=== PATIENT | female | born 1975 | race Caucasian/White ===

== ENCOUNTER 2017-04-03 18:58 | Emergency (ER) | payer OTHER ==
[~2017-04-03] VITALS: Ht 167.6 cm; Wt 81.8 kg
[~2017-04-03 18:58] MED LIST: 0.9126SP NS; AMOX1TAB61 PO; ASPI-482 PO; AZIT250T6 PO; BUTA1CAP29 PO; ENOX40DI SQ; FLUT16SP2 NS; HYDR1TAB12 PO; ONDA4TAB10 SL
[2017-04-03] MEDS ORDERED: IV NORMAL SALINE 1,000ML 1,000 ML IV SCH (19:16)
[2017-04-03] MEDS ORDERED: IV NORMAL SALINE 1,000ML 1,000 ML ONE (19:19)
[2017-04-03 19:28] LABS: BASO # 0.1 x10^3/uL (0.0-0.2); BASO % 1 % (0-3); EOS # 0.3 x10^3/uL (0.0-0.7); EOS % 5 % (0-3); HEMATOCRIT 32.3 % (36.0-47.0); HEMOGLOBIN 10.8 g/dL (12.0-15.5); LYMPH # 3.2 x10^3/uL (1.0-4.8); LYMPH % 49 % (24-48); MEAN CORPUSCULAR HEMOGLOBIN 27 pg (25-35); MEAN CORPUSCULAR HGB CONC 33 g/dL (31-37); MEAN CORPUSCULAR VOLUME 80 fL (79-100); MONO # 0.6 x10^3/uL (0.0-1.1); MONO % 9 % (0-9); NEUT # 2.4 x10^3uL (1.8-7.7); NEUT % 36 % (31-73); PLATELET COUNT 295 x10^3/uL (140-400); RED BLOOD COUNT 4.04 x10^6/uL (3.50-5.40); RED CELL DISTRIBUTION WIDTH 20.6 % (11.5-14.5); WHITE BLOOD COUNT 6.5 x10^3/uL (4.0-11.0)
[2017-04-03] MEDS ORDERED: ONDANSETRON PF 4 MG/2 ML VIAL. IV ONE (19:30)
[2017-04-03] MEDS ORDERED: KETOROLAC 30 MG/ML VIAL. IV ONE (19:30)
[2017-04-03 19:36] LABS: ALBUMIN 3.3 g/dL (3.4-5.0); ALK PHOS 78 U/L (46-116); ALT (SGPT) 19 U/L (14-59); ANION GAP 7 (6-14); AST (SGOT) 5 U/L (15-37); BLOOD UREA NITROGEN 10 mg/dL (7-20); CALCIUM 8.4 mg/dL (8.5-10.1); CARBON DIOXIDE 26 mmol/L (21-32); CHLORIDE 104 mmol/L (98-107); CREATININE 0.8 mg/dL (0.6-1.0); DIRECT BILIRUBIN < 0.1 mg/dL (0.0-0.2); LIPASE 96 U/L (73-393); POTASSIUM 3.8 mmol/L (3.5-5.1); SODIUM 137 mmol/L (136-145); TOTAL BILIRUBIN 0.2 mg/dL (0.2-1.0)
[2017-04-03 19:37] LABS: GLUCOSE 139 mg/dL (70-99)
[2017-04-03] MEDS ORDERED: DICYCLOMINE 20 MG/2 ML AMPUL. IM ONE (20:00)
[2017-04-03] MEDS ORDERED: IOHEXOL 300 MG/ML 75 ML VIAL. IV ONE (20:15)
--- NOTE | 2017-04-03 20:20 | PHYS DOC ---
General Chief Complaint: ABDOMINAL PAIN Stated Complaint: UNRESPONSIVE ON ARRIVAL Time Seen by MD: 19:07 Source: patient, family Exam Limitations: clinical condition Problems: History of Present Illness Initial Comments Patient is a 42-year-old female brought to the ED by her spouse for severe abdominal pain. Patient states that she had a partial hysterectomy and bladder sling approximately 3 months ago. She says since that time she's had lower abdominal discomfort and numbness in her groin. She states she has followed up with her surgeon and says that her surgeon told her her symptoms "were all in her head." Her spouse states that prior to ED arrival tonight he found the patient prone bent over the ottoman complaining of abdominal pain. Spouse reportedly asked the patient if she needed to come to the emergency department and she agreed. Spouse states that en route to the emergency department the patient "passed out " while seated in the passenger seat of his car. On arrival to the emergency department he says he could not wake her up. ED staff responded to the vehicle in the parking lot and found the patient sitting in the passenger seat awake alert and oriented 3. Patient states her pain is in her low abdomen she has nausea but no vomiting she denies fevers chills sweats or myalgias no nausea vomiting diarrhea or other bowel symptoms. No pre-arrival treatment. Patient's spouse relays that the patient has had recent psychiatric issues with severe depression and inpatient psychiatric treatments. Patient says the past 2 days her depression symptoms have worsened she saw a counselor 2 days ago and the patient was called in to a meeting with the patient and her counselor today to discuss her ongoing depression symptoms. Spouse was concerned that the patient may have overmedicated, he reports that he has found medications at home indicating that the patient has been doctor shopping to get specific medications she likes. ED vitals: 98.9, 20, 94/55, 96% room air Timing/Duration: 4-6 hours Severity: severe Modifying Factors: improves with other Associated Symptoms: other Allergies: Coded Allergies: Sulfa (Sulfonamide Antibiotics) (Unverified Allergy, Unknown, rash, ) sertraline (Verified Allergy, Unknown, 01/19/16) Past Medical History Medical History: other (anxiety, fibromyalgia, depression, suicidal ideation, migraine headaches, panic attacks, hypertension) Surgical History: other (herniorrhaphy, partial hysterectomy, bladder sling) Social History Smoker: non-smoker Alcohol: none Drugs: none Review of Systems Constitutional: denies chills, denies diaphoresis, denies fever, malaise Respiratory: denies cough, denies shortness of breath, denies wheezing Cardiovascular: denies chest pain, denies palpitations, denies syncope Gastrointestinal: abdominal pain, denies constipation, denies diarrhea, nausea , denies vomiting Genitourinary: denies discharge, denies dysuria, frequency, denies hematuria Musculoskeletal: denies back pain, denies joint swelling, denies neck pain Psychiatric/Neurological: denies headache, denies numbness, denies paresthesia Physical Exam General Appearance: moderate distress, obese Eyes: bilateral eye normal inspection, bilateral eye PERRL, bilateral eye EOMI Ear, Nose, Throat: hearing grossly normal, normal ENT inspection, normal pharynx Neck: non-tender, supple Respiratory: normal breath sounds, no respiratory distress Cardiovascular: normal peripheral pulses, regular rate, rhythm Gastrointestinal: soft (OB/nondistended, bowel sounds normal, suprapubic tenderness without rebound guarding or mass negative Magaña negative McBurney) Back: no CVA tenderness, no vertebral tenderness Extremities: normal range of motion, non-tender, normal inspection, no pedal edema, no calf tenderness Neurologic/Psychiatric: talent acquisition consultant II-XII nml as tested, no motor/sensory deficits, alert, oriented x 3, depressed affect, other (denies suicidal or homicidal ideation) Skin: normal color, warm/dry Orders, Labs, Meds EKG: NSR 96 bpm, no STEMI. Interpreted by Dr Weiss PATIENT: ASHLEE SORENSEN ACCOUNT: [id number] : 1975 LOCATION: ER AGE: 42 SEX: F EXAM STATUS: REG ER ORD. PHYSICIAN: MARLEN WEISS DO REASON: post op (hysterectomy) pain PROCEDURE: CT ABD PELV W/ IV CONTRST ONLY CT abdomen and pelvis with contrast. HISTORY: Pelvic pain, hysterectomy [address] scan of the abdomen and pelvis was done using 75 mL Omnipaque 300 contrast. Lung bases are clear. There is no effusion. A liver lesion is not identified. There is no calcified gallstone. Adrenal glands are normal. There is mild heterogeneous enhancement of the spleen which could just be related to the phase of the contrast enhancement, a definite lesion is not identified. Pancreas is normal. There is no mass or hydronephrosis in the kidneys. There is no free air or ascites or bowel obstruction. There is moderate stool in the colon. There is no abdominal wall hernia noted. Ovaries are generous in size without a dominant mass or cyst. Patient's had a hysterectomy. There is no small bowel obstruction. IMPRESSION: 1. No abdominal or pelvic mass noted 2. Ovaries are generous with small follicles. 3. No bowel obstruction or other acute finding noted. PQRS Compliance Statement: One or more of the following individualized dose reduction techniques were utilized for this examination: 1. Automated exposure control 2. Adjustment of the mA and/or kV according to patient size 3. Use of iterative reconstruction technique Electronically signed by: Alfredo Swanson MD (04/03/2017 9:03 PM) [facility] DICTATED AND SIGNED BY: ALFREDO SWANSON MD DATE: 04/03/172056 CC: ADRI ZHAO; MARLEN WEISS DO ~ 5: Time in department 2h 17 min. Lab just notified that pt needs to be redrawn for lactic acid. Pt will have prolonged ED course due to lab delay. Pertinent labs: White blood cells 6.5, hemoglobin 10.8 normocytic, urinalysis grossly positive for products of infection urine culture is pending I discussed findings as well as a treatment plan moving forward. Patient spouse were encouraged to continue follow-up for her psychiatric care. They expressed agreement and understanding of the treatment plan see departure. Departure Time of Disposition: 22:51 Disposition: 01 HOME, SELF-CARE Diagnosis: urinary tract infection Condition: GOOD Patient Instructions: Urinary Tract Infection, [id number] Additional Instructions: Rest, no strenuous activity. Aggressive hydration with gatorade, water. Continue current meds. OTC tylenol as needed. Rx: cipro, pyridium Follow up with your doctor in 3 days for recheck and urine culture results. Return to ED with new or changing symptoms. MARLEN WEISS DO Apr 03, 2017 20:20
[2017-04-03 20:30] LABS: AMPHETAMINE/METHAMPHETAMINE NEG (NEG); BARBITURATES NEG (NEG); BENZODIAZEPINES POS (NEG); CANNABINOIDS NEG (NEG); COCAINE NEG (NEG); METHADONE NEG (NEG); OPIATES NEG (NEG); PHENCYCLIDINE NEG (NEG)
[2017-04-03] MEDS ORDERED: CONTRAST GIVEN MC PRN (20:30)
--- NOTE | 2017-04-03 20:32 | EKG ---
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
[2017-04-03 20:36] LABS: BILIRUBIN,URINE NEG (NEG); CLARITY,URINE HAZY; COLOR,URINE YELLOW; GLUCOSE,URINE NEG (NEG); NITRITE,URINE POS (NEG); UROBILINOGEN,URINE 0.2 mg/dL (0.2 mg/dL)
[2017-04-03 20:37] LABS: BACTERIA,URINE MANY /HPF (0-FEW); SQUAMOUS EPITHELIAL CELL,UR FEW /LPF; WBC,URINE >40 /HPF (0-4)
[2017-04-03] MEDS ORDERED: cefTRIAXone SODIUM 1 GM VIAL IV ONE (21:00)
[2017-04-03] MEDS ORDERED: IV NORMAL SALINE 50ML 50 ML ONE (21:00)
--- NOTE | 2017-04-03 21:06 | RAD ---
CT abdomen and pelvis with contrast. HISTORY: Pelvic pain, hysterectomy [address] scan of the abdomen and pelvis was done using 75 mL Omnipaque 300 contrast. Lung bases are clear. There is no effusion. A liver lesion is not identified. There is no calcified gallstone. Adrenal glands are normal. There is mild heterogeneous enhancement of the spleen which could just be related to the phase of the contrast enhancement, a definite lesion is not identified. Pancreas is normal. There is no mass or hydronephrosis in the kidneys. There is no free air or ascites or bowel obstruction. There is moderate stool in the colon. There is no abdominal wall hernia noted. Ovaries are generous in size without a dominant mass or cyst. Patient's had a hysterectomy. There is no small bowel obstruction. IMPRESSION: 1. No abdominal or pelvic mass noted 2. Ovaries are generous with small follicles. 3. No bowel obstruction or other acute finding noted. PQRS Compliance Statement: One or more of the following individualized dose reduction techniques were utilized for this examination: 1. Automated exposure control 2. Adjustment of the mA and/or kV according to patient size 3. Use of iterative reconstruction technique Electronically signed by: Alfredo Swanson MD (04/03/2017 9:03 PM) [facility]
[2017-04-03 21:56] LABS: ANISOCYTOSIS SLIGHT; OVALOCYTES FEW; PLT ESTIMATE ADEQUATE (ADEQUATE)
[2017-04-03 23:00] VITALS: BP 123/82
[2017-04-03] MEDS ORDERED: PHENAZOPYRIDINE 200 MG TABLET. PO ONE (23:00)
--- NOTE | 2017-04-04 08:08 | RAD ---
Three-view acute abdominal series. History: Abdominal pain, pelvic pain PA and lateral views were taken of the chest. Lungs are free of infiltrates. Heart is normal in size. There is no effusion. There is no free air on the upright view of the abdomen or abnormal air-fluid levels. There is moderate stool mainly in the right colon and transverse colon. There is no bowel obstruction. There are no abnormal calcifications. Impression: 1. No acute chest disease. 2. No bowel obstruction or acute finding in the abdomen.
== END 2017-04-03 23:00 | disposition home or self-care (01) ==
LOC: ER 18:58
DX: N39.0 Urinary tract infection, site not specified (principal); I10 Essential (primary) hypertension; M79.7 Fibromyalgia; F41.9 Anxiety disorder, unspecified; G43.909 Migraine, unspecified, not intractable, without status migrainosus; Z88.2 Allergy status to sulfonamides; Z88.8 Allergy status to other drugs, medicaments and biological substances
CPT/HCPCS: 36415; 74022; 74177; 80048; 80076; 80305; 81001; 82550; 83605; 83690; 84484; 85008; 85027; 87086; 87186; 93005; 96361; 96365; 96372; 96375; 99285; G0480; J0500; J0696; J1885; J2405; G0481; J7030

== ENCOUNTER 2017-04-04 17:41 | Emergency (ER) | payer OTHER ==
[~2017-04-04] VITALS: Ht 167.6 cm; Wt 81.8 kg
[2017-04-04 18:20] VITALS: BP 123/82
[2017-04-04 20:15] LABS: BILIRUBIN,URINE NEG (NEG); CLARITY,URINE CLOUDY; COLOR,URINE RED; GLUCOSE,URINE 100 mg/dL (NEG)
[2017-04-04 20:17] LABS: NITRITE,URINE POS (NEG); UROBILINOGEN,URINE 1 mg/dL (0.2 mg/dL)
[2017-04-04 20:18] LABS: BACTERIA,URINE FEW /HPF (0-FEW); SQUAMOUS EPITHELIAL CELL,UR MANY /LPF; WBC,URINE >40 /HPF (0-4)
[2017-04-04 21:03] LABS: ALBUMIN 2.9 g/dL (3.4-5.0); ALBUMIN/GLOBULIN RATIO 0.8 (1.0-1.7); CALCIUM 8.5 mg/dL (8.5-10.1); CREATININE 0.8 mg/dL (0.6-1.0); POTASSIUM 4.1 mmol/L (3.5-5.1); TOTAL BILIRUBIN 0.1 mg/dL (0.2-1.0); TOTAL PROTEIN 6.5 g/dL (6.4-8.2)
--- NOTE | 2017-04-04 21:33 | PHYS DOC ---
General Chief Complaint: PAIN ON URINATION Stated Complaint: PAIN ON URINATION Time Seen by MD: 18:18 Source: patient, old records Exam Limitations: no limitations Problems: History of Present Illness Initial Comments Patient is a 42-year-old female who returns to the department today complaining of worsening of symptoms. Patient was seen by me at this facility last night for lower abdominal pain. She was evaluated extensively and found to have a urinary tract infection she was discharged home with antibiotics and Pyridium. She says since starting those medications she has had gas pains and bloating. She complains of foul- smelling gas with abdominal bloating and is requesting pain medications. She denies fever chills sweats or myalgias no nausea vomiting or diarrhea. See ED records from last night's visit for further information. Timing/Duration: 24 hours Severity: mild Modifying Factors: improves with other Associated Symptoms: other Allergies: Coded Allergies: Sulfa (Sulfonamide Antibiotics) (Unverified Allergy, Unknown, rash, ) sertraline (Verified Allergy, Unknown, 01/19/16) Past Medical History Medical History: other (depression, anxiety, fibromyalgia, migraine headaches) Surgical History: other (hysterectomy, bladder sling) Social History Smoker: non-smoker Alcohol: none Drugs: none Review of Systems Constitutional: denies chills, denies fever Respiratory: denies cough, denies shortness of breath Cardiovascular: denies chest pain, denies palpitations Gastrointestinal: see HPI Genitourinary: see HPI Musculoskeletal: denies back pain, denies joint swelling, denies neck pain Psychiatric/Neurological: see HPI Physical Exam General Appearance: no apparent distress, obese Ear, Nose, Throat: hearing grossly normal, normal ENT inspection Neck: non-tender, supple Respiratory: normal breath sounds, no respiratory distress Gastrointestinal: soft (mildly distended and tympanic, no tenderness to palpation no masses bowel sounds are normal) Back: no CVA tenderness, no vertebral tenderness Extremities: non-tender, normal inspection Neurologic/Psychiatric: lead security officer II-XII nml as tested, no motor/sensory deficits, alert, oriented x 3, depressed affect Skin: normal color, warm/dry Orders, Labs, Meds Urinalysis remains positive for products of infection I discussed the patient's symptoms as well as her presentation yesterday with the extensive workup. Patient was advised no narcotic pain medications would be given for this condition as it would worsen her abdominal symptoms. She is agreeable to simethicone and discharge home. Departure Time of Disposition: 21:28 Disposition: 01 HOME, SELF-CARE Diagnosis: adverse medication reaction (increased bowel gas) Condition: GOOD Patient Instructions: Flatulence, [id number] Additional Instructions: Continue current medications. Aggressive hydration with gatorade, water. Rx: simethicone No narcotic pain medications indicated and would actually worsen your symptoms. Increase exercise and activity. Follow up with your doctor in 3-5 days. Return to ED with new or changing symptoms. MARLEN WEISS DO Apr 04, 2017 21:33
[2017-04-04] MEDS ORDERED: SIMETHICONE 80 MG TAB.CHEW PO ONE (21:45)
== END 2017-04-04 21:45 | disposition home or self-care (01) ==
LOC: ER 17:41
DX: T36.95XA Adverse effect of unspecified systemic antibiotic, initial encounter (principal); T39.8X5A Adverse effect of other nonopioid analgesics and antipyretics, not elsewhere classified, initial encounter; M79.7 Fibromyalgia; F41.9 Anxiety disorder, unspecified; G43.909 Migraine, unspecified, not intractable, without status migrainosus; Z87.440 Personal history of urinary (tract) infections; Z88.2 Allergy status to sulfonamides; Z88.8 Allergy status to other drugs, medicaments and biological substances; Y92.89 Other specified places as the place of occurrence of the external cause
CPT/HCPCS: 36415; 80053; 81001; 87086; 99284

== ENCOUNTER 2017-05-11 12:05 | Emergency (ER) | payer OTHER ==
[~2017-05-11] VITALS: Ht 167.6 cm; Wt 81.8 kg
--- NOTE | 2017-05-11 12:15 | PHYS DOC ---
Past History Past Medical History: Anxiety, Depression, Fibromyalgia, Migraines Past Surgical History: Hysterectomy Alcohol Use: None Drug Use: None Adult General HPI HPI Patient is a 42 yo female presenting to ED for evaluation of an OD on her medications. She says that she is trying to kill herself. She took 6 of her 50mg hydroxyzine tabs and 6 of her 4mg tizanidine tabs at appx 11am. She says she took her AM meds as well. She has tried killing herself with pills in the past. She says she is not necessarily SI just wants the pain to stop. Says she has chronic pain from fibro. She is in nad with normal VS. 04/30/2017 1 04/30/2017 TRAMADOL HCL 50 MG TABLET 45.0 15 DE MOS [id number] [facility] ([id number]) 0 15.0 Comm Ins [place] 04/30/2017 3 04/30/2017 CLONAZEPAM 1 MG TABLET 45.0 15 DE MOS [id number] [facility] ([id number]) 0 Other [place] 04/30/2017 3 04/30/2017 TEMAZEPAM 30 MG CAPSULE 15.0 15 DE MOS [id number] [facility] ([id number]) 0 Other [place] 03/29/2017 3 03/29/2017 ALPRAZOLAM 1 MG TABLET 20.0 10 JI FERNY [id number] [facility] ([id number]) 1 Other [place] 02/22/2017 3 02/22/2017 TRAMADOL-ACETAMINOPHN 37.5-325 60.0 20 PE CRI [id number] [facility] ([id number]) 1 11.25 Other [place] Review of Systems Review of Systems Constitutional: Denies fever or chills [] Eyes: Denies change in visual acuity, redness, or eye pain [] HENT: Denies nasal congestion or sore throat [] Respiratory: Denies cough or shortness of breath [] Cardiovascular: No additional information not addressed in HPI [] GI: Denies abdominal pain, nausea, vomiting, bloody stools or diarrhea [] : Denies dysuria or hematuria [] Musculoskeletal: Diffuse soft tissue and joint pain Integument: Denies rash or skin lesions [] Neurologic: Denies headache, focal weakness or sensory changes [] Allergies Allergies Allergies Coded Allergies Type Severity Reaction Last Updated Verified Sulfa (Sulfonamide Antibiotics) Allergy Unknown rash 11/14/14 No sertraline Allergy Unknown 01/19/16 Yes Physical Exam Physical Exam Constitutional: Well developed, well nourished, no acute distress, non-toxic appearance. [] HENT: Normocephalic, atraumatic, bilateral external ears normal, oropharynx moist, no oral exudates, nose normal. [] Eyes: PERRLA, EOMI, conjunctiva normal, no discharge. [] Neck: Normal range of motion, no tenderness, supple, no stridor. [] Cardiovascular:Heart rate regular rhythm, no murmur [] Lungs & Thorax: Bilateral breath sounds clear to auscultation [] Abdomen: Bowel sounds normal, soft, no tenderness, no masses, no pulsatile masses. [] Skin: Warm, dry, no erythema, no rash. [] Back: No tenderness, no CVA tenderness. [] Extremities: No tenderness, no cyanosis, no clubbing, ROM intact, no edema. [] Neurologic: Alert and oriented X 3, normal motor function, normal sensory function, no focal deficits noted. [] Psychologic: Affect flat. EKG EKG NSR at 88 bpm with normal axis. No obvious ST elevation or depression and normal T waves. Radiology/Procedures Radiology/Procedures [] Course & Med Decision Making Course & Med Decision Making I spoke to poison center and they recommended observation for up to 6 hours. Patient is sleepy but protecting airway in NAD. Patient's labs are all normal and she is in no obvious distress with continued normal vital signs. Patient is medically cleared from my standpoint but psychiatry does not feel comfortable sending her home so she is being screened by [facility]. 1800 assumed care of the patient. Report from Dr. Hamilton. We are waiting for disposition. Patient was accepted for inpatient by [facility]. Transfer paperwork was completed. EMS was called to transport the patient. Patient remained stable in the ED. Dragon Disclaimer Dragon Disclaimer This chart was dictated in whole or in part using Voice Recognition software in a busy, high-work load, and often noisy Emergency Department environment. It may contain unintended and wholly unrecognized errors or omissions. Departure Departure: Impression: Primary Impression: Overdose Additional Impression: Suicidal ideation Disposition: 65 XFER TO PSYCH HOSP/UNIT Condition: STABLE Referrals: ADRI ZHAO (PCP) Problem Qualifiers Primary Impression: Overdose Encounter type: initial encounter Injury intent: intentional self-harm Qualified Codes: T50.902A - Poisoning by unspecified drugs, medicaments and biological substances, intentional self-harm, initial encounter FORREST HAMILTON DO May 11, 2017 12:15 EDWINA OSBORNE MD May 11, 2017 19:17
[2017-05-11 12:45] LABS: BASO # 0.1 x10^3/uL (0.0-0.2); BASO % 1 % (0-3); EOS # 0.3 x10^3/uL (0.0-0.7); EOS % 3 % (0-3); HEMOGLOBIN 12.4 g/dL (12.0-15.5); LYMPH # 2.9 x10^3/uL (1.0-4.8); LYMPH % 38 % (24-48); MEAN CORPUSCULAR HEMOGLOBIN 29 pg (25-35); MEAN CORPUSCULAR HGB CONC 33 g/dL (31-37); MEAN CORPUSCULAR VOLUME 86 fL (79-100); MONO # 0.9 x10^3/uL (0.0-1.1); MONO % 13 % (0-9); NEUT # 3.4 x10^3uL (1.8-7.7); NEUT % 44 % (31-73); PLATELET COUNT 284 x10^3/uL (140-400); RED BLOOD COUNT 4.32 x10^6/uL (3.50-5.40); RED CELL DISTRIBUTION WIDTH 19.5 % (11.5-14.5); WHITE BLOOD COUNT 7.6 x10^3/uL (4.0-11.0)
--- NOTE | 2017-05-11 12:47 | EKG ---
[address] [address] Test Date: 2017-05-11 Test Time: 12:38:15 Pat Name: ASHLEE SORENSEN Department: Room: Gender: F Staff Attorney: : 1975 Requested By: FORREST HAMILTON Order Number: [id number] Reading MD: Measurements Intervals [place] Rate: 88 P: 34 [place]: 154 QRS: 36 QRSD: 98 T: 10 QT: 378 QTc: 461 Interpretive Statements SINUS RHYTHM QRS(T) CONTOUR ABNORMALITY CONSIDER ANTEROSEPTAL MYOCARDIAL DAMAGE CANNOT RULE OUT INFERIOR MYOCARDIAL DAMAGE RI6.01 Unconfirmed report No previous ECG available for comparison
[2017-05-11 12:58] LABS: ALBUMIN 3.7 g/dL (3.4-5.0); ALBUMIN/GLOBULIN RATIO 1.1 (1.0-1.7); CALCIUM 8.8 mg/dL (8.5-10.1); CREATININE 0.8 mg/dL (0.6-1.0); MAGNESIUM 1.9 mg/dL (1.8-2.4); POTASSIUM 3.8 mmol/L (3.5-5.1); TOTAL BILIRUBIN 0.2 mg/dL (0.2-1.0); TOTAL PROTEIN 7.2 g/dL (6.4-8.2)
[2017-05-11 12:59] LABS: ACETAMIN < 2.0 mcg/mL (10-30); ETHANOL < 10 mg/dL (0-10)
[2017-05-11] MEDS ORDERED: IV NORMAL SALINE 1,000ML 1,000 ML IV ONE (13:00)
[2017-05-11 13:51] LABS: AMPHETAMINE/METHAMPHETAMINE NEG (NEG); BARBITURATES NEG (NEG); BENZODIAZEPINES POS (NEG); CANNABINOIDS NEG (NEG); COCAINE NEG (NEG); METHADONE NEG (NEG); OPIATES NEG (NEG); PHENCYCLIDINE NEG (NEG)
[2017-05-11 13:57] LABS: BACTERIA,URINE FEW /HPF (0-FEW); BILIRUBIN,URINE NEG (NEG); CLARITY,URINE CLEAR; COLOR,URINE YELLOW; GLUCOSE,URINE NEG (NEG); NITRITE,URINE NEG (NEG); RBC,URINE 0 /HPF (0-2); SQUAMOUS EPITHELIAL CELL,UR MOD /LPF; UROBILINOGEN,URINE 0.2 mg/dL (0.2 mg/dL); WBC,URINE RARE /HPF (0-4)
[2017-05-11 19:47] VITALS: BP 113/60
== END 2017-05-11 19:50 ==
LOC: ER 12:05
DX: T43.592A Poisoning by other antipsychotics and neuroleptics, intentional self-harm, initial encounter (principal); T42.8X2A Poisoning by antiparkinsonism drugs and other central muscle-tone depressants, intentional self-harm, initial encounter; M79.7 Fibromyalgia; G43.909 Migraine, unspecified, not intractable, without status migrainosus; F41.9 Anxiety disorder, unspecified; F32.9 Major depressive disorder, single episode, unspecified; Z88.2 Allergy status to sulfonamides; Z88.8 Allergy status to other drugs, medicaments and biological substances; Y92.89 Other specified places as the place of occurrence of the external cause
CPT/HCPCS: 36415; 80053; 80307; 81001; 83735; 84443; 85025; 93005; 96360; 99285; G0480; G0479; J7030

== ENCOUNTER 2019-05-03 15:40 | Emergency (ER) | payer OTHER ==
[~2019-05-03] VITALS: Ht 167.6 cm; Wt 95.3 kg
[~2019-05-03 15:40] MED LIST changes: -HYDR1TAB12 PO; +HYDR1TAB13 PO
[2019-05-03 15:45] VITALS: BP 118/80
--- NOTE | 2019-05-03 16:33 | PHYS DOC ---
Past History Past Medical History: Migraines Past Surgical History: Hysterectomy, Other Alcohol Use: None Drug Use: None Adult General Chief Complaint Chief Complaint: ABSCESS HPI HPI 44-year-old female presents with labial abscess. The patient has had a nodule on the left inferior portion of her outer labia for a couple of months. Sometimes it is bigger, and then will get smaller. Over the last 3 days it is continued to enlarge in size and is quite painful. She has had some drainage from it before the last 3 days, but not today. It is painful to walk and she decided she should have something done with that. She has not had an abscess in the past. Denies fever or chills. She has no other complaints. Review of Systems Review of Systems Constitutional: Denies fever or chills [] Eyes: Denies change in visual acuity, redness, or eye pain [] HENT: Denies nasal congestion or sore throat [] Respiratory: Denies cough or shortness of breath [] Cardiovascular: No additional information not addressed in HPI [] GI: Denies abdominal pain, nausea, vomiting, bloody stools or diarrhea [] : Labial abscess[] Musculoskeletal: Denies back pain or joint pain [] Integument: Denies rash or skin lesions [] Neurologic: Denies headache, focal weakness or sensory changes [] Endocrine: Denies polyuria or polydipsia [] All other systems were reviewed and found to be within normal limits, except as documented in this note. Current Medications Current Medications Current Medications Medications (Trade) Dose Ordered Sig/Kateryna Start Time Stop Time Status Last Admin Dose Admin Ondansetron HCl (Zofran Odt) 4 mg 1X ONCE 05/03/19 16:30 05/03/19 16:31 UNV Allergies Allergies Allergies Coded Allergies Type Severity Reaction Last Updated Verified Sulfa (Sulfonamide Antibiotics) Allergy Unknown rash 11/14/14 No sertraline Allergy Unknown 01/19/16 Yes Physical Exam Physical Exam Constitutional: Well developed, well nourished, no acute distress, non-toxic appearance. [] HENT: Normocephalic, atraumatic, bilateral external ears normal, oropharynx moist, no oral exudates, nose normal. [] Eyes: PERRLA, EOMI, conjunctiva normal, no discharge. [] Neck: Normal range of motion, no tenderness, supple, no stridor. [] Cardiovascular:Heart rate regular rhythm, no murmur [] Lungs & Thorax: Bilateral breath sounds clear to auscultation [] Abdomen: Bowel sounds normal, soft, no tenderness, no masses, no pulsatile masses. [] Skin: Left, inferior, outer labia with 2 cm round abscess, with central fluctuance. [] Back: No tenderness, no CVA tenderness. [] Extremities: No tenderness, no cyanosis, no clubbing, ROM intact, no edema. [] Neurologic: Alert and oriented X 3, normal motor function, normal sensory function, no focal deficits noted. [] Psychologic: Affect normal, judgement normal, mood normal. [] Current Patient Data Vital Signs Vital Signs Date Time Temp Pulse Resp B/P (MAP) Pulse Ox O2 Delivery O2 Flow Rate FiO2 05/03/19 15:45 98.2 112 20 95 Room Air EKG EKG [] Radiology/Procedures Radiology/Procedures [] Course & Med Decision Making Course & Med Decision Making Pertinent Labs and Imaging studies reviewed. (See chart for details) I performed an incision and drainage on the patient's abscess. See note for more details. A wound culture was sent. I will place her on doxycycline and Augmentin for 7 days. The patient is allergic to sulfa. [] Dragon Disclaimer Dragon Disclaimer This electronic medical record was generated, in whole or in part, using a voice recognition dictation system. Incision and Drainage Indication: A 2 cm abscess of the left outer labia Procedure: T verbal consent was obtained from the patient for an incision and drainage of her left labial abscess. The area was pain with alcohol solution. I anesthetized the abscess with 2% lidocaine with epinephrine. A total of 1 mL was used. After good anesthesia was achieved, I made a 4 mm incision with a #11 blade scalpel. There was immediate purulent drainage. I explored the wound with forceps to break up loculations. Additional material was expressed. A wound culture was sent. A clean dressing was applied over the area. The patient tolerated the procedure well. Complications: none. Departure Departure: Impression: Primary Impression: Left genital labial abscess Disposition: HOME, SELF-CARE Condition: STABLE Referrals: ADRI ZHAO (PCP) Patient Instructions: Abscess, Care After Scripts Amoxicillin/Potassium Clav (AUGMENTIN 875-125 TABLET) 1 Each Tablet 1 TAB PO BID for abscess, #14 TAB Prov: DEREK CORTEZ DO 05/03/19 Doxycycline Hyclate (DOXYCYCLINE HYCLATE) 100 Mg Capsule 1 CAP PO BID for abscess, #14 CAP Prov: DEREK CORTEZ DO 05/03/19 DEREK CORTEZ DO May 03, 2019 16:33
[2019-05-03] MEDS ORDERED: AMOX1TAB61 PO (17:00)
[2019-05-03] MEDS ORDERED: ONDANSETRON ODT 4 MG TAB.RAPDIS PO ONE (17:00)
[2019-05-03] MEDS ORDERED: DOXY100C2 PO (17:00)
[2019-05-03] MEDS ORDERED: AMOXICILLIN/K CLAV 875/125MG TABLET. PO ONE (17:15)
[2019-05-03] MEDS ORDERED: DOXYCYCLINE HYCLATE 100 MG TABLET PO ONE (17:15)
== END 2019-05-03 17:08 | disposition home or self-care (01) ==
LOC: ER 15:40
DX: N76.4 Abscess of vulva (principal); G43.909 Migraine, unspecified, not intractable, without status migrainosus; Z90.710 Acquired absence of both cervix and uterus; Z88.2 Allergy status to sulfonamides; Z88.8 Allergy status to other drugs, medicaments and biological substances
CPT/HCPCS: 56405; 87070; 99284; Q0162

== ENCOUNTER → 2019-11-10 | Outpatient (CLI) | payer OTHER ==
[~2019-11-10] MED LIST changes: +DOXY100C2 PO
[2019-11-10 14:32] LABS: BASO # 0.1 x10^3/uL (0.0-0.2); BASO % 1 % (0-3); EOS # 0.2 x10^3/uL (0.0-0.7); EOS % 2 % (0-3); HEMATOCRIT 41.7 % (36.0-47.0); HEMOGLOBIN 13.9 g/dL (12.0-15.5); LYMPH # 2.6 x10^3/uL (1.0-4.8); LYMPH % 24 % (24-48); MEAN CORPUSCULAR HEMOGLOBIN 30 pg (25-35); MEAN CORPUSCULAR HGB CONC 33 g/dL (31-37); MEAN CORPUSCULAR VOLUME 90 fL (79-100); MONO % 9 % (0-9); NEUT # 6.8 x10^3uL (1.8-7.7); NEUT % 64 % (31-73); PLATELET COUNT 260 x10^3/uL (140-400); RED BLOOD COUNT 4.62 x10^6/uL (3.50-5.40); RED CELL DISTRIBUTION WIDTH 13.7 % (11.5-14.5); WHITE BLOOD COUNT 10.7 x10^3/uL (4.0-11.0)
[2019-11-10 14:49] LABS: ALBUMIN 3.5 g/dL (3.4-5.0); ALBUMIN/GLOBULIN RATIO 0.9 (1.0-1.7); CALCIUM 8.6 mg/dL (8.5-10.1); CREATININE 0.7 mg/dL (0.6-1.0); GFR 91.3; POTASSIUM 3.9 mmol/L (3.5-5.1); TOTAL BILIRUBIN 0.3 mg/dL (0.2-1.0); TOTAL PROTEIN 7.6 g/dL (6.4-8.2)
--- NOTE | 2019-11-10 15:01 | RAD ---
Examination: CT ABDOMEN PELVIS WO CONTRAST History: Right lower quadrant pain Comparison/Correlation: 08/20/2016 CTA of the chest and abdomen, Limited abdominal ultrasound exam dated 08/20/2016 Findings: Axial images of the abdomen and pelvis were obtained without contrast. Sagittal and coronal reformatted images were provided. Visualized lung bases are clear. Minimal atelectasis or scarring adjacent to the right pericardiac fat is present. Fatty infiltration of the liver is present. Spleen, pancreas, adrenal glands, and kidneys are unremarkable. High density within the gallbladder which may represent sludge is noted. Calculus involvement is not excluded however. The appendix is distended with inflammatory changes about its distal aspect. No extraluminal gas. No abscess collection. Urinary bladder is unremarkable. No ascites or pelvic free fluid. No enlarged abdominal or pelvic lymph nodes. Bony structures are unremarkable. Impression: Acute appendicitis. High density within the gallbladder raises question of cholelithiasis. Consider ultrasound exam for more definitive assessment. Fatty infiltration of the liver. On 11/10/2019 at 2:57 PM, results were reported to Isela Smith of the referring physician's office. PQRS Compliance Statement: One or more of the following individualized dose reduction techniques were utilized for this examination: 1. Automated exposure control 2. Adjustment of the mA and/or kV according to patient size 3. Use of iterative reconstruction technique Electronically signed by: Tyler Fulton MD (11/10/2019 2:58 PM) [facility]
== END | disposition home or self-care (01) ==
LOC: CT 13:59
PROVIDERS: ATTEND Family Medicine
DX: K35.80 Unspecified acute appendicitis (principal); K76.0 Fatty (change of) liver, not elsewhere classified
CPT/HCPCS: 36415; 74176; 80053; 82150; 83690; 85025

== ENCOUNTER 2021-02-22 21:36 | Emergency (ER) | payer OTHER ==
[~2021-02-22] VITALS: Ht 167.6 cm; Wt 72.7 kg
[2021-02-22] MEDS ORDERED: CYCL-331 PO (22:32)
--- NOTE | 2021-02-22 22:32 | PHYS DOC ---
Past History Past Medical History: Diabetes, Migraines, Other Additional Past Medical Histor: fibromyalgia Past Surgical History: Hysterectomy, Other Alcohol Use: None Drug Use: None Adult General Chief Complaint Chief Complaint: BACK PAIN - NO INJURY HPI HPI Patient is a 46-year-old female with a past medical history significant for fibromyalgia and chronic back pain who presents with right-sided back pain. States it started a couple days ago, is in her lower right back just above her right buttock with some radiation down her right lateral thigh down to about the level of her knee. States this happens couple times a year. Cannot identify any aggravating incidents or triggers. Denies any numbness/weakness/tingling. States she is able to walk however though. States [place]. States she usually takes Flexeril for this, which does help but she has been out for some time now and would like a refill. Denies any recent travel, traumas, fevers, chest pain, shortness of breath, abdominal pain, nausea, vomiting, dysuria, hematuria or blood in the stool. States she is making urine and stool normally for her. Review of Systems Review of Systems Review of systems otherwise unremarkable except noted in HPI Allergies Allergies Allergies Coded Allergies Type Severity Reaction Last Updated Verified Sulfa (Sulfonamide Antibiotics) Allergy Unknown rash 11/14/14 No sertraline Allergy Unknown 01/19/16 Yes Physical Exam Physical Exam Constitutional: Well developed, well nourished, no acute distress, non-toxic appearance. [] Neck: Normal range of motion, no tenderness, supple, no stridor. [] Cardiovascular:Heart rate regular rhythm, no murmur [] Lungs & Thorax: No respiratory distress Abdomen: soft, no tenderness Skin: Warm, dry, no erythema, no rash. [] Back: Mild tenderness at the superior portion of the right buttock, with positive left-sided straight leg raise test. No midline spinal tenderness or paraspinal muscle tenderness across the length of the spine. Suggestive of sciatica. Neurovascular exam intact. Able to walk without issue. Extremities:ROM intact, no edema. [] Neurologic: Alert and oriented X 3, normal motor function, normal sensory function, no focal deficits noted. [] Psychologic: Affect normal, judgement normal, mood normal. [] Current Patient Data Vital Signs Vital Signs Date Time Temp Pulse Resp B/P (MAP) Pulse Ox O2 Delivery O2 Flow Rate FiO2 02/22/21 21:51 98.4 92 18 152/97 (115) 98 Room Air EKG EKG [] Radiology/Procedures Radiology/Procedures [] Heart Score C/O Chest Pain: No Risk Factors: Risk Factors: DM, Current or recent (<one month) smoker, HTN, HLP, family history of CAD, obesity. Risk Scores: Risk Factors: DM, Current or recent (<one month) smoker, HTN, HLP, family history of CAD, obesity. Course & Med Decision Making Course & Med Decision Making Patient is a 46-year-old female who presents with right-sided symptoms of sciatica Vital signs not concerning. Physical exam noted above. No concerning signs and symptoms/red flags or signs of cauda equina. Given pain medication and muscle relaxer in the ED. Gave advice on pain management at home. Gave education on muscle strain and sciatica. Advised to follow-up with primary care physician next week to discuss her sciatica and need for further imaging, and chronic management. Gave return precautions to the ED. Patient grateful, verbalized understanding and agreed with plan of discharge. [] Dragon Disclaimer Dragon Disclaimer This electronic medical record was generated, in whole or in part, using a voice recognition dictation system. Departure Departure: Impression: Primary Impression: Sciatica Disposition: HOME / SELF CARE / HOMELESS Condition: GOOD Referrals: ADRI ZHAO (PCP) ALEXIS LORD MD Patient Instructions: Sciatica Additional Instructions: Please read all the attached information very carefully. Please begin a Tylenol, ibuprofen, ice and Benadryl regimen as discussed. You can also use your muscle relaxers as prescribed as needed. Please follow-up with your primary care physician first thing Wednesday morning to update on ED visit and set up a follow-up appointment as soon as possible. Please come back to the emergency department with new or concerning symptoms as discussed. Scripts Cyclobenzaprine Hcl (CYCLOBENZAPRINE HCL) 10 Mg Tablet 1 TAB PO BID PRN for MUSCLE SPASMS for 10 Days, #20 TAB Prov: ANDRIY NEELY MD 02/22/21 ANDRIY NEELY MD Feb 22, 2021 22:32
[2021-02-22 22:38] VITALS: BP 127/74
[2021-02-22] MEDS ORDERED: oxyCODONE/APAP 5/325 1 TAB TABLET PO ONE (23:00)
[2021-02-22] MEDS ORDERED: CYCLOBENZAPRINE 10 MG TABLET. PO ONE (23:00)
== END 2021-02-22 22:45 | disposition home or self-care (01) ==
LOC: ER 21:36
DX: M54.41 Lumbago with sciatica, right side (principal); E11.9 Type 2 diabetes mellitus without complications; M79.7 Fibromyalgia; Z90.710 Acquired absence of both cervix and uterus; Z88.2 Allergy status to sulfonamides
CPT/HCPCS: 99283-25

== ENCOUNTER 2021-03-02 14:11 | Emergency (ER) | payer OTHER ==
[~2021-03-02] VITALS: Ht 167.6 cm; Wt 72.7 kg
[~2021-03-02 14:11] MED LIST changes: +CYCL-331 PO
--- NOTE | 2021-03-02 15:52 | PHYS DOC ---
Past History Past Medical History: Diabetes, Migraines, Other Additional Past Medical Histor: fibromyalgia (WILL ISSA DO) Past Surgical History: Hysterectomy, Other (WILL ISSA DO) Alcohol Use: None Drug Use: None (WILL ISSA DO) Adult General Chief Complaint Chief Complaint: NAUSEA/VOMITING/DIARRHEA HPI HPI Patient is a 46yo female presenting for chest pain. Onset was yesterday evening at rest. Nothing known made better, physical activity made worse. Described as sharp and deep to right sternal border without radiation. States episode of chest pain lasted several hours but improved, states she later developed nausea and had ~15 episodes of non-blood non-bilious emesis with subsequent loose stools. Last meal was ~7 hours prior to chest pain, was a salad without protein options and all food contents were non-concerning per patient. She denies any significant medical issues, no recent sick contacts or travel, no fever, URI symptoms, BREWSTER, vision changes, ripping/tearing sensation in chest, AP, dysuria. Denies tobacco, alcohol and illicit drug use (WILL ISSA DO) Review of Systems Review of Systems Fourteen body systems of review of systems have been reviewed. See HPI for pertinent positives and negative responses, other briones all other systems are negative, non-pertinent or non-contributory (WILL ISSA DO) Current Medications Current Medications Current Medications Medications (Trade) Dose Ordered Sig/Kateryna Start Time Stop Time Status Last Admin Dose Admin Metoclopramide HCl (Reglan Vial) 10 mg 1X ONCE 03/02/21 16:00 03/02/21 16:01 UNV Sodium Chloride 1,000 ml @ 1,000 mls/hr 1X ONCE 03/02/21 16:00 03/02/21 16:59 UNV (WILL ISSA DO) Allergies Allergies Allergies Coded Allergies Type Severity Reaction Last Updated Verified Sulfa (Sulfonamide Antibiotics) Allergy Unknown rash 11/14/14 No sertraline Allergy Unknown 01/19/16 Yes (WILL ISSA DO) Physical Exam Physical Exam Constitutional: Well developed, well nourished, no acute distress but appears uncomfortable due to pain, non-toxic appearance. HENT: Normocephalic, atraumatic, bilateral external ears normal, oropharynx dry, no oral exudates, nose normal. Eyes: PERRLA, EOMI, conjunctiva normal, no discharge. Neck: Normal range of motion, no tenderness, supple, no stridor. Cardiovascular: Heart rate tachycardic, sinus rhythm, no murmurs rubs or gallops Lungs & Thorax: Bilateral breath sounds clear to auscultation, no overt resp distress or accessory muscle use Abdomen: Bowel sounds normal, soft, no tenderness, no masses, no pulsatile masses. Nonsurgical abdomen, no peritoneal signs Skin: Warm, dry, no erythema, no rash. Back: No tenderness, no CVA tenderness. Extremities: No tenderness, no cyanosis, no clubbing, ROM intact, no edema. Neurologic: Alert and oriented X 3, grossly normal motor & sensory function, no focal deficits noted. Psychologic: Anxious affect and mood (WILL ISSA DO) Current Patient Data Vital Signs Vital Signs Date Time Temp Pulse Resp B/P (MAP) Pulse Ox O2 Delivery O2 Flow Rate FiO2 03/02/21 14:30 98.6 99 22 153/87 (109) 96 Room Air Vital Signs Date Time Temp Pulse Resp B/P (MAP) Pulse Ox O2 Delivery O2 Flow Rate FiO2 03/02/21 18:44 16 96 Room Air 03/02/21 18:41 102 157/87 (110) 03/02/21 14:30 98.6 Lab Results Laboratory Tests Test 03/02/21 15:40 03/02/21 15:50 03/02/21 16:25 White Blood Count 10.0 x10^3/uL Red Blood Count 4.49 x10^6/uL Hemoglobin 13.7 g/dL Hematocrit 40.3 % Mean Corpuscular Volume 90 fL Mean Corpuscular Hemoglobin 31 pg Mean Corpuscular Hemoglobin Concent 34 g/dL Red Cell Distribution Width 13.6 % Platelet Count 305 x10^3/uL Neutrophils (%) (Auto) 76 % Lymphocytes (%) (Auto) 13 % Monocytes (%) (Auto) 9 % Eosinophils (%) (Auto) 0 % Basophils (%) (Auto) 1 % Neutrophils # (Auto) 7.6 x10^3uL Lymphocytes # (Auto) 1.3 x10^3/uL Monocytes # (Auto) 0.9 x10^3/uL Eosinophils # (Auto) 0.0 x10^3/uL Basophils # (Auto) 0.1 x10^3/uL Sodium Level 137 mmol/L Potassium Level 4.0 mmol/L Chloride Level 100 mmol/L Carbon Dioxide Level 23 mmol/L Anion Gap 14 Blood Urea Nitrogen 5 mg/dL Creatinine 0.7 mg/dL Estimated GFR (Cockcroft-Gault) 90.5 BUN/Creatinine Ratio 7 Glucose Level 186 mg/dL Calcium Level 9.1 mg/dL Total Bilirubin 0.3 mg/dL Aspartate Amino Transf (AST/SGOT) 23 U/L Alanine Aminotransferase (ALT/SGPT) 38 U/L Alkaline Phosphatase 95 U/L Troponin I Quantitative < 0.017 ng/mL Total Protein 8.1 g/dL Albumin 3.8 g/dL Albumin/Globulin Ratio 0.9 Lipase 51 U/L Ethyl Alcohol Level < 10 mg/dL Urine Collection Type Unknown Urine Color Yellow Urine Clarity Hazy Urine pH 7.0 Urine Specific Bliss 1.025 Urine Protein 100 mg/dl Urine Glucose (UA) 500 mg/dL Urine Ketones (Stick) 15 mg/dL Urine Blood Neg Urine Nitrite Neg Urine Bilirubin Neg Urine Urobilinogen Dipstick 0.2 mg/dL Urine Leukocyte Esterase Neg Urine RBC 0 /HPF Urine WBC 0 /HPF Urine Squamous Epithelial Cells Occ /LPF Urine Bacteria Few /HPF Urine Opiates Screen Neg Urine Methadone Screen Neg Urine Barbiturates Neg Urine Phencyclidine Screen Neg Urine Amphetamine/Methamphetamine Neg Urine Benzodiazepines Screen Neg Urine Cocaine Screen Neg Urine Cannabinoids Screen Pos Urine Ethyl Alcohol Current Medications Medications (Trade) Dose Ordered Sig/Kateryna Route PRN Reason Start Time Stop Time Status Last Admin Dose Admin Sodium Chloride 1,000 ml @ 1,000 mls/hr 1X ONCE IV 03/02/21 16:00 03/02/21 16:59 DC 03/02/21 16:01 Metoclopramide HCl (Reglan Vial) 10 mg 1X ONCE IVP 03/02/21 16:00 03/02/21 16:01 DC 03/02/21 16:00 Aspirin (Aspirin Chewable) 162 mg 1X ONCE PO 03/02/21 16:00 03/02/21 16:01 DC 03/02/21 16:01 Nitroglycerin (Nitrostat) 0.4 mg PRN Q5MIN PRN SL CHEST PAIN 03/02/21 16:15 03/02/21 17:20 Fentanyl Citrate (Fentanyl 2ml Vial) 50 mcg 1X ONCE IVP 03/02/21 16:15 03/02/21 16:30 DC Ondansetron HCl (Zofran) 4 mg 1X ONCE IVP 03/02/21 16:45 03/02/21 16:46 DC 03/02/21 16:40 Ondansetron HCl (Zofran) 4 mg STK-MED ONCE .ROUTE 03/02/21 16:38 03/02/21 16:38 DC Iohexol (Omnipaque 350 Mg/ml) 100 ml 1X ONCE IV 03/02/21 17:45 03/02/21 17:46 DC Info (Do NOT chart on this entry -- for MONITORING) 1 each PRN DAILY PRN MC SEE COMMENTS 03/02/21 17:45 03/04/21 17:44 Ondansetron HCl (Zofran) 4 mg 1X ONCE IVP 03/02/21 18:45 03/02/21 18:46 DC 03/02/21 18:43 Morphine Sulfate (Morphine 4mg Syringe) 4 mg 1X ONCE IV 03/02/21 18:45 03/02/21 18:46 DC 03/02/21 18:44 Prochlorperazine Edisylate (Compazine) 5 mg 1X ONCE IV 03/02/21 19:45 03/02/21 19:46 DC 03/02/21 19:51 Diphenhydramine HCl (Benadryl) 25 mg 1X ONCE IVP 03/02/21 19:45 03/02/21 19:46 DC 03/02/21 19:51 (WILL ISSA DO) EKG EKG EKG ordered and interpreted by myself at 1551 hrs. as sinus rhythm at 97 bpm, QTC prolonged at 474 otherwise unremarkable intervals, no axis deviation, no acute ischemic findings, no STEMI (WILL ISSA DO) Radiology/Procedures Radiology/Procedures [] (WILL ISSA DO) Heart Score C/O Chest Pain: Yes HEART Score for Chest Pain: HEART Score for Chest Pain Response (Comments) Value History Slighlty/Non-Suspicious 0 ECG Normal 0 Age < 45 0 Risk Factors 1 or 2 Risk Factors 1 Troponin < Normal Limit 0 Total 1 Risk Factors: Risk Factors: DM, Current or recent (<one month) smoker, HTN, HLP, family history of CAD, obesity. Risk Scores: Risk Factors: DM, Current or recent (<one month) smoker, HTN, HLP, family history of CAD, obesity. (WILL ISSA DO) Course & Med Decision Making Course & Med Decision Making Tachycardic with O2 sat ~90-92% throughout my exam, HPI concerning for CP that resolved prior to arrival with development of n/v/d. PE non-concerning for emergent/surgical issues ER workup ensued, QTC prolongation with +cannabinoids on UDS. Patient denies cannabis abuse. Had repeat bout of chest pain while in ER that resolved with Nitro and ASA. Joint-decision to pursue CTA chest to r/o PE. Nausea improved with Zofran and Reglan At time of my shift ending, patient pending CTA and IVF rehydration. I gave comprehensive signout and reviewed workup thus far with oncoming physician and noted prolonged QT with x1 dose of zofran given while in ER today. Please defer to Dr. Neely's documentation regarding future care of patient while in ER (WILL ISSA DO) Course & Med Decision Making Patient care handed off to me at checkout pending CT. CT suggestive of biliary/gallbladder pathology. Ultrasound notable for acute cholecystitis. Patient started on Zosyn in the ED and continued on IV fluid resuscitation, nausea medicine and pain medicine. Discussed patient with surgeon, Dr. Dowd at [facility] who accepted patient for continued evaluation, and treatment. Discussed findings with patient who agreed with plan of transfer and admission (ANDRIY NEELY MD) Dragon Disclaimer Dragon Disclaimer This electronic medical record was generated, in whole or in part, using a voice recognition dictation system. (WILL ISSA DO) Departure Departure: Referrals: PCP,UNKNOWN (PCP) WILL ISSA DO Mar 02, 2021 15:52 ANDRIY NEELY MD Mar 02, 2021 20:23
[2021-03-02] MEDS ORDERED: ASPIRIN CHEWABLE 81 MG TABLET. PO ONE (16:00)
[2021-03-02] MEDS ORDERED: METOCLOPRAMIDE HCL 10 MG/2 ML VIAL. IVP ONE (16:00)
[2021-03-02] MEDS ORDERED: IV NORMAL SALINE 1,000ML 1,000 ML IV ONE (16:00)
[2021-03-02 16:03] LABS: BASO # 0.1 x10^3/uL (0.0-0.2); BASO % 1 % (0-3); EOS % 0 % (0-3); HEMATOCRIT 40.3 % (36.0-47.0); HEMOGLOBIN 13.7 g/dL (12.0-15.5); LYMPH # 1.3 x10^3/uL (1.0-4.8); LYMPH % 13 % (24-48); MEAN CORPUSCULAR HEMOGLOBIN 31 pg (25-35); MEAN CORPUSCULAR HGB CONC 34 g/dL (31-37); MEAN CORPUSCULAR VOLUME 90 fL (79-100); MONO # 0.9 x10^3/uL (0.0-1.1); MONO % 9 % (0-9); NEUT # 7.6 x10^3uL (1.8-7.7); NEUT % 76 % (31-73); PLATELET COUNT 305 x10^3/uL (140-400); RED BLOOD COUNT 4.49 x10^6/uL (3.50-5.40); RED CELL DISTRIBUTION WIDTH 13.6 % (11.5-14.5)
[2021-03-02 16:10] LABS: CALCIUM 9.1 mg/dL (8.5-10.1); CREATININE 0.7 mg/dL (0.6-1.0); GFR 90.5
--- NOTE | 2021-03-02 16:10 | EKG ---
[address] [address] Test Date: 2021-03-02 Test Time: 15:34:11 Pat Name: ASHLEE SORENSEN Department: Room: Gender: F Process Steward: : 1975 Requested By: WILL ISSA Order Number: [id number] Reading MD: Measurements Intervals [place] Rate: 97 P: 11 CA: 162 QRS: 33 QRSD: 98 T: 4 QT: 370 QTc: 474 Interpretive Statements SINUS RHYTHM PROLONGED QT NO SPECIFIC ECG ABNORMALITIES RI6.02 Compared to ECG 03/02/2021 15:33:16 Prolonged QT interval now present
[2021-03-02 16:16] LABS: ALBUMIN 3.8 g/dL (3.4-5.0); ALBUMIN/GLOBULIN RATIO 0.9 (1.0-1.7); TOTAL BILIRUBIN 0.3 mg/dL (0.2-1.0); TOTAL PROTEIN 8.1 g/dL (6.4-8.2)
[2021-03-02] MEDS: NITROGLYCERIN SUBLINGUAL 0.4 MG BOTTLE OF 25. SL PRN ×2 (16:20→17:20)
--- NOTE | 2021-03-02 16:23 | RAD ---
XR CHEST 1V 03/02/2021 3:52 PM INDICATION: Chest pain COMPARISON: 08/20/2016 TECHNIQUE: Portable frontal view of the chest is provided. FINDINGS: The cardiomediastinal silhouette is within normal limits. Lungs are clear. There are no significant pleural effusions. There is no pulmonary vascular congestion. No pneumothora x. No suspicious osseous abnormality. IMPRESSION: There is no acute cardiopulmonary process. Electronically signed by: Adrianna Gutierrez MD (03/02/2021 4:21 PM) [facility]
[2021-03-02] MEDS ORDERED: ONDANSETRON PF 4 MG/2 ML VIAL. ONE (16:38)
[2021-03-02] MEDS ORDERED: ONDANSETRON PF 4 MG/2 ML VIAL. IVP ONE ×2 (16:45→18:45)
[2021-03-02 16:57] LABS: BARBITURATES NEG (NEG); BENZODIAZEPINES NEG (NEG); CANNABINOIDS POS (NEG); COCAINE NEG (NEG); METHADONE NEG (NEG); OPIATES NEG (NEG); PHENCYCLIDINE NEG (NEG)
[2021-03-02 17:03] LABS: AMPHETAMINE/METHAMPHETAMINE NEG (NEG)
[2021-03-02 17:10] LABS: BILIRUBIN,URINE NEG (NEG); CLARITY,URINE HAZY; COLOR,URINE YELLOW; GLUCOSE,URINE 500 mg/dL (NEG)
[2021-03-02 17:11] LABS: NITRITE,URINE NEG (NEG); UROBILINOGEN,URINE 0.2 mg/dL (0.2 mg/dL)
[2021-03-02 17:12] LABS: BACTERIA,URINE FEW /HPF (0-FEW); RBC,URINE 0 /HPF (0-2); SQUAMOUS EPITHELIAL CELL,UR OCC /LPF; WBC,URINE 0 /HPF (0-4)
[2021-03-02] MEDS ORDERED: IOHEXOL 350 MG/ML 100 ML VIAL. IV ONE (17:45)
[2021-03-02] MEDS ORDERED: CONTRAST GIVEN. MC PRN (17:45)
--- NOTE | 2021-03-02 18:20 | RAD ---
CT angiogram chest with contrast PQRS statement: CT scans at this facility use dose reduction including either automated exposure cont rol, iterative reconstructions, and /or weight based radiation dosing via mA and kV modification when appropriate to reduce radiation dose to as low as reasonably achievable. Contrast: 100 mL Omnipaque 350 intravenous contrast. 3-D MIP reconstructions of the arteries were acq uired. HISTORY: Shortness of breath. COMPARISON: CT chest August 20, 2016. FINDINGS: The gallbladder neck appears to be somewhat distended extends outside the [id number] at the evangelista hepatis. Heart size is normal. Aorta and esophagus are unremarkable. No adenopathy in the c hest. No pulmonary artery emboli. Trachea and bronchi are unremarkable. No pneumothorax, pulmonary op acities or pleural effusions. 3 mm fissural lymph node or nodule minor fissure image 63 stable, benig n. Mild atelectasis at the lung bases. IMPRESSION: 1. No acute process in the chest. No pulmonary artery emboli. 2. Unusual loop of bowel versus prominent gallbladder neck and possible surrounding groundglass edema near the evangelista hepatis extending outside the [id number]. Inflammatory changes of cholecystitis is not excluded. Consider further assessment with abdominal imaging. Electronically signed by: Crow Arevalo MD (03/02/2021 6:18 PM) [facility]
[2021-03-02] MEDS ORDERED: MORPHINE SULFATE 4 MG/ML DISP.SYRIN. IV ONE (18:45)
[2021-03-02] MEDS ORDERED: diphenhydrAMINE 50 MG/ML VIAL IVP ONE (19:45)
[2021-03-02] MEDS ORDERED: PROCHLORPERAZINE 10 MG/2 ML VIAL. IV ONE (19:45)
--- NOTE | 2021-03-02 19:47 | RAD ---
EXAM: ULTRASOUND ABDOMEN LIMITED CLINICAL HISTORY: Reason: RUQ pain / Spl. Instructions: / History: COMPARISON: None available. TECHNIQUE: Limited ultrasound examination of the right upper quadrant of the abdomen was performed. FINDINGS: The head and body of the pancreas are unremarkable. The tail is obscured by intestinal gas.. Liver: Increased hepatic echogenicity relative to the right kidney consistent with hepatic steatosis .. There are no focal liver lesions. Flow seen within the portal veins. Biliary: Gallbladder is dilated. There numerous gallstones with diffuse wall thickening. There is a s onographic [place] sign per the department setup operator. Common bile duct measures 8 mm. Right Kidney: 11.3 cm in bipolar length. No hydronephrosis. Visualized portions of the abdominal aorta and inferior vena cava are unremarkable. There is no free fluid in the subhepatic space. IMPRESSION: 1. Findings concerning for acute cholecystitis. 2. Diffuse hepatic steatosis. 3. No right-sided hydronephrosis. Electronically signed by: Ramiro Del Rio MD (03/02/2021 7:45 PM) [facility]
[2021-03-02] MEDS ORDERED: IV NORMAL SALINE 50ML 50 ML ONE (20:27)
[2021-03-02] MEDS ORDERED: PIPERACILLIN/TAZOBACTAM 4.5 GM VIAL IV ONE (20:27)
[2021-03-02] MEDS ORDERED: PIPERACILLIN/TAZOBACTAM 4.5 GM in IV NORMAL SALINE 50ML 50 ML IV ONE (20:30)
[2021-03-02 22:45] VITALS: BP 182/96
[2021-03-03] MEDS ORDERED: MORPHINE SULFATE 4 MG/ML DISP.SYRIN. IV ONE (01:00)
[2021-03-03] MEDS ORDERED: PROCHLORPERAZINE 10 MG/2 ML VIAL. IV ONE (01:00)
== END 2021-03-02 22:50 | disposition short-term general hospital (02) ==
LOC: ER 14:11
DX: R07.89 Other chest pain (principal); E11.9 Type 2 diabetes mellitus without complications; Z20.822 Contact with and (suspected) exposure to COVID-19; Z88.2 Allergy status to sulfonamides; Z90.710 Acquired absence of both cervix and uterus
CPT/HCPCS: 36415; 71045; 71275; 76705; 80053; 80307; 81001; 83690; 84484; 85025; 87426; 93005; 96361; 96365; 96375; 96376; 99285; C9803; G0480; J0780; J1200; J2270; J2405; J2543; J2765; J7030; U0003

== ENCOUNTER → 2021-04-08 | Outpatient (CLI) | payer OTHER ==
[~2021-04-08] MED LIST changes: +IOHEXOL 300 MG/ML 75 ML VIAL. IV ONE
--- NOTE | 2021-04-08 09:18 | RAD ---
EXAMINATION: CT abdomen with IV contrast. INDICATION:46 years, Female, status post cholecystectomy. Follow-up exam. TECHNIQUE: Axial CT images of the abdomen was performed. Coronal and sagittal reformatted performed. COMPARISON: Ultrasound dated 03/02/[address] dated 11/10/2019. Exposure: One or more of the following individualized dose reduction techniques were utilized for thi s examination: 1. Automated exposure control 2. Adjustment of the mA and/or kV according to patient size 3. Use of iterative reconstruction technique. FINDINGS: LOWER CHEST: Dependent subsegmental atelectasis in bibasilar lungs. ABDOMEN/PELVIS: Mild hepatomegaly with diffuse steatosis. It measures 19.1 cm in length. No suspicious focal hepatic lesion. Interval cholecystectomy. No soft tissue thickening or fluid collection in the gallbladder be d. Unremarkable spleen, pancreas adrenals and kidneys. No bowel obstruction. Appendectomy. Normal esvin iber abdominal aorta. Mesenteric arteries and portal vein are patent. No ascites or pneumoperitoneum. No abdominal lymphadenopathy by size criteria. Corpus luteal cyst in the visualized left ovary. Righ t ovary is unremarkable. MUSCULOSKELETAL: No acute osseous process. Postsurgical changes along the anterior abdominal wall. IMPRESSION: 1. Interval status post cholecystectomy. No acute abnormality in the abdomen. 2. Mild hepatomegaly with diffuse steatosis Electronically signed by: Lex Ardon MD (04/08/2021 9:15 AM) [id number]
== END ==
LOC: CT 08:34
PROVIDERS: ATTEND Surgery
DX: Z09 Encounter for follow-up examination after completed treatment for conditions other than malignant neoplasm (principal); K76.0 Fatty (change of) liver, not elsewhere classified; N83.12 Corpus luteum cyst of left ovary
CPT/HCPCS: 74160; Q9967

== ENCOUNTER 2021-04-15 10:41 | Emergency (ER) | payer OTHER ==
[~2021-04-15] VITALS: Ht 167.6 cm; Wt 108.0 kg
[~2021-04-15 10:41] MED LIST changes: -IOHEXOL 300 MG/ML 75 ML VIAL. IV ONE
[2021-04-15] MEDS ORDERED: IV NORMAL SALINE 1,000ML 1,000 ML IV ONE (10:45)
[2021-04-15 11:21] LABS: BASO # 0.1 x10^3/uL (0.0-0.2); BASO % 1 % (0-3); EOS # 0.3 x10^3/uL (0.0-0.7); EOS % 4 % (0-3); LYMPH # 2.3 x10^3/uL (1.0-4.8); LYMPH % 34 % (24-48); MEAN CORPUSCULAR HEMOGLOBIN 30 pg (25-35); MEAN CORPUSCULAR HGB CONC 33 g/dL (31-37); MEAN CORPUSCULAR VOLUME 91 fL (79-100); MONO # 0.5 x10^3/uL (0.0-1.1); MONO % 8 % (0-9); NEUT # 3.6 x10^3uL (1.8-7.7); NEUT % 54 % (31-73); PLATELET COUNT 298 x10^3/uL (140-400); RED BLOOD COUNT 4.28 x10^6/uL (3.50-5.40); WHITE BLOOD COUNT 6.7 x10^3/uL (4.0-11.0)
[2021-04-15 11:24] LABS: CALCIUM 8.9 mg/dL (8.5-10.1)
[2021-04-15 11:39] LABS: ALBUMIN 3.6 g/dL (3.4-5.0); ALBUMIN/GLOBULIN RATIO 0.9 (1.0-1.7); MAGNESIUM 2.1 mg/dL (1.8-2.4); TOTAL BILIRUBIN 0.2 mg/dL (0.2-1.0); TOTAL PROTEIN 7.6 g/dL (6.4-8.2)
--- NOTE | 2021-04-15 12:06 | PHYS DOC ---
Past History Past Medical History: Diabetes, Migraines, Other Additional Past Medical Histor: fibromyalgia Past Surgical History: Appendectomy, Cholecystectomy, Hysterectomy, Oop horectomy, Other Additional Past Surgical Histo: D&C; mesh for abd hernia; bladder tacked Smoking: Non-smoker Alcohol Use: None Drug Use: None General Adult EDM: Chief Complaint: BACK PAIN OR INJURY HPI: HPI: Patient is a 46 year old female who presents with one week of nausea and vomiting as well as constant 8/10 right back pain that radiates into her right abdomen. She reports she has only been able to tolerate PO liquids during this time and that eating worsens her pain. She is also complaining of foul smelling urine but denies any dysuria, frequency or hematuria. Denies fevers or chills. N o alleviating factors. Patient was concerned about swelling at the base of her sacrum and was seen at an urgent care for this. She took her first dose of antibiotics for it yesterday. Review of Systems: Review of Systems: Constitutional: Denies fever or chills Eyes: Denies redness or eye pain HENT: Denies nasal congestion or sore throat Respiratory: Denies cough or shortness of breath Cardiovascular: Denies chest pain or palpitations GI: Reports abdominal pain, nausea and vomiting. : Denies dysuria or hematuria Musculoskeletal: Reports back pain. Denies joint pain Integument: Denies rash or skin lesions Neurologic: Denies headache, focal weakness or sensory changes Complete systems were reviewed and found to be within normal limits, except as documented in this note. Current Medications: Current Meds: Current Medications Medications (Trade) Dose Ordered Sig/Kateryna Start Time Stop Time Status Last Admin Dose Admin Sodium Chloride 1,000 ml @ 1,000 mls/hr 1X ONCE 04/15/21 10:45 04/15/21 11:44 04/15/21 11:12 1,000 MLS/HR Allergies: Allergies: Allergies Coded Allergies Type Severity Reaction Last Updated Verified Sulfa (Sulfonamide Antibiotics) Allergy Unknown rash 04/15/21 No sertraline Allergy Unknown 04/15/21 Yes Physical Exam: PE: Constitutional: Well developed, well nourished, no acute distress, non-toxic appearance HENT: Normocephalic, atraumatic Eyes: Conjunctiva normal, no discharge Neck: Normal range of motion, no tenderness, supple Lungs & Thorax: No respiratory distress, equal chest rise and fall Abdomen: Right upper and lower quadrants tender to palpation. Soft, otherwise nontender Skin: There is a small, tender and indurated area at the sacral base without warmth or erythema. Remainder is warm, dry, no erythema, no rash. Back: Tenderness to palpation over the right mid and lower back. No CVA t enderness Extremities: No tenderness, ROM intact, no edema Neurologic: Alert and oriented X 3 Psychologic: Affect normal, judgment normal Current Patient Data: Labs: Laboratory Tests Test 04/15/21 11:02 White Blood Count 6.7 x10^3/uL (4.0-11.0) Red Blood Count 4.28 x10^6/uL (3.50-5.40) Hemoglobin 13.0 g/dL (12.0-15.5) Hematocrit 39.0 % (36.0-47.0) Mean Corpuscular Volume 91 fL (79-100) Mean Corpuscular Hemoglobin 30 pg (25-35) Mean Corpuscular Hemoglobin Concent 33 g/dL (31-37) Red Cell Distribution Width 14.0 % (11.5-14.5) Platelet Count 298 x10^3/uL (140-400) Neutrophils (%) (Auto) 54 % (31-73) Lymphocytes (%) (Auto) 34 % (24-48) Monocytes (%) (Auto) 8 % (0-9) Eosinophils (%) (Auto) 4 % (0-3) H Basophils (%) (Auto) 1 % (0-3) Neutrophils # (Auto) 3.6 x10^3uL (1.8-7.7) Lymphocytes # (Auto) 2.3 x10^3/uL (1.0-4.8) Monocytes # (Auto) 0.5 x10^3/uL (0.0-1.1) Eosinophils # (Auto) 0.3 x10^3/uL (0.0-0.7) Basophils # (Auto) 0.1 x10^3/uL (0.0-0.2) Sodium Level 142 mmol/L (136-145) Potassium Level 4.0 mmol/L (3.5-5.1) Chloride Level 104 mmol/L (98-107) Carbon Dioxide Level 26 mmol/L (21-32) Anion Gap 12 (6-14) Blood Urea Nitrogen 6 mg/dL (7-20) L Creatinine 1.0 mg/dL (0.6-1.0) Estimated GFR (Cockcroft-Gault) 60.0 BUN/Creatinine Ratio 6 (6-20) Glucose Level 129 mg/dL (70-99) H Calcium Level 8.9 mg/dL (8.5-10.1) Magnesium Level Pending Total Bilirubin Pending Aspartate Amino Transferase (AST) Pending Alanine Aminotransferase (ALT) Pending Alkaline Phosphatase Pending Total Protein Pending Albumin Pending Albumin/Globulin Ratio Pending Lipase Pending Vital Signs: Vital Signs Date Time Temp Pulse Resp B/P (MAP) Pulse Ox O2 Delivery O2 Flow Rate FiO2 04/15/21 10:52 98.9 106 20 125/81 95 Room Air EKG: EKG: [] Radiology/Procedures: Radiology/Procedures: [] Heart Score: C/O Chest Pain: N/A Risk Factors: Risk Factors: DM, Current or recent (<one month) smoker, HTN, HLP, family history of CAD, obesity. Course & Med Decision Making: Course & Med Decision Making 46 year old female presents with one week of nausea, vomiting, and constant right back and abdominal pain. Prior CT for same symptoms on 04/08/21 was reviewed and is negative. Additional imaging deemed unnecessary at this time as new pathology would not likely be seen. CBC, CMP and urine were negative. Patient was given Norflex after initial evaluation for pain management. Her sacrum was evaluated and it appeared there may be a small pilonidal cyst but it does not appear infected and drainage is not indicated at this time. Dragon Disclaimer: Dragon Disclaimer: This electronic medical record was generated, in whole or in part, using a voice recognition dictation system. Departure Departure: Impression: Primary Impression: Flank pain, acute Additional Impression: Pilonidal cyst Disposition: HOME / SELF CARE / HOMELESS Condition: STABLE Referrals: SHANTA BLACKBURN DO (PCP) ALEXEY RODRIGUEZ MD Patient Instructions: Flank Pain, [id number], Pilonidal Cyst Additional Instructions: Increase fluid hydration. Scripts Ondansetron (ONDANSETRON ODT) 4 Mg Tab.rapdis 1 TAB PO PRN Q6-8HRS PRN for NAUSEA, #16 TAB Prov: ROBIN MONTALVO DO 04/15/21 Hydrocodone Bit/Acetaminophen (HYDROCODONE-APAP 5-325 ) 1 Each Tablet 0.5-1 TAB PO PRN Q6HRS PRN for PAIN, #10 TAB 0 Refills Prov: ROBIN MONTALVO DO 04/15/21 Orphenadrine Citrate (ORPHENADRINE CITRATE) 100 Mg Tablet.er 1 TAB PO BID PRN for MUSCLE PAIN, #14 TAB 0 Refills Prov: ROBIN MONTALVO DO 04/15/21 ROBIN MONTALVO DO Apr 15, 2021 12:06
[2021-04-15] MEDS ORDERED: ORPHENADRINE CITRATE 60 MG/2 ML VIAL. IV ONE (13:30)
[2021-04-15 13:45] LABS: BILIRUBIN,URINE NEG (NEG); CLARITY,URINE CLEAR; COLOR,URINE YELLOW; GLUCOSE,URINE NEG (NEG); NITRITE,URINE NEG (NEG); UROBILINOGEN,URINE 0.2 mg/dL (0.2 mg/dL)
[2021-04-15 13:46] LABS: BACTERIA,URINE FEW /HPF (0-FEW); RBC,URINE 0 /HPF (0-2); SQUAMOUS EPITHELIAL CELL,UR MOD /LPF; WBC,URINE RARE /HPF (0-4)
[2021-04-15] MEDS ORDERED: HYDR-2155 PO (14:02)
[2021-04-15] MEDS ORDERED: ORPH-16 PO (14:02)
[2021-04-15] MEDS ORDERED: ONDA4TAB12 PO (14:02)
[2021-04-15 14:14] VITALS: BP 139/101
== END 2021-04-15 14:14 | disposition home or self-care (01) ==
LOC: ER 10:41
DX: L05.91 Pilonidal cyst without abscess (principal); R11.2 Nausea with vomiting, unspecified; E11.9 Type 2 diabetes mellitus without complications; G43.909 Migraine, unspecified, not intractable, without status migrainosus; M79.7 Fibromyalgia; Z90.89 Acquired absence of other organs; Z90.49 Acquired absence of other specified parts of digestive tract; Z90.710 Acquired absence of both cervix and uterus; Z90.722 Acquired absence of ovaries, bilateral; Z88.2 Allergy status to sulfonamides; Z88.8 Allergy status to other drugs, medicaments and biological substances
CPT/HCPCS: 36415; 80053; 81001; 81025; 83605; 83690; 83735; 85025; 96361; 96374; 99285; J2360; J7030